=== PATIENT | female | born 1975 | race African-American/Black ===

== ENCOUNTER 2017-04-01 07:50 | Emergency (ER) | payer OTHER ==
[~2017-04-01] VITALS: Ht 165.1 cm; Wt 59.0 kg
[~2017-04-01 07:50] MED LIST: CIPR-213 PO; ONDA4TAB51 PO; TRAM50TA3 PO
[2017-04-01] MEDS ORDERED: SODIUM CHLORIDE 0.9% 1,000 ML IV ONE (08:56)
[2017-04-01] MEDS ORDERED: MORPHINE SULFATE 4 MG/ML CPJ (NOT FOR IM USE) IV STA (08:56)
[2017-04-01] MEDS ORDERED: FAMOTIDINE 20MG/2ML VIAL IV STA (08:56)
[2017-04-01] MEDS ORDERED: METOCLOPRAMIDE HCL 10MG TABLET PO STA (08:56)
[2017-04-01 09:26] LABS: BASOPHILS % 0.9 % (0.0-2.0); EOSINOPHILS % 0.7 % (0.0-5.0); HEMATOCRIT. 37.8 % (36.0-48.0); HEMOGLOBIN. 12.1 g/dL (12.0-16.0); LYMPHOCYTES % 17.4 % (20.0-50.0); MEAN CORPUSCULAR HEMOGLOBIN 27.9 pg (28.0-32.0); MEAN CORPUSCULAR VOLUME 87.2 fL (81.0-99.0); MEAN PLATELET VOLUME 8.3 fl (7.4-10.4); MONOCYTES % 6.9 % (2.0-8.0); NEUTROPHILS % 74.1 % (40.0-76.0); PLATELET 402 x1000/uL (130-400); RED BLOOD CELL COUNT 4.34 mill/uL (4.2-5.4); RED CELL DISTRIBUTION WIDTH 16.7 % (11.6-14.6)
[2017-04-01 09:27] VITALS: BP 141/78
[2017-04-01 09:40] LABS: CARBON DIOXIDE 27 mEq/L (21-32); CHLORIDE 102 mEq/L (98-107)
[2017-04-01] MEDS ORDERED: VISCOUS LIDOCAINE 2% 15 ML UDC MM PRN (11:30)
[2017-04-01] MEDS ORDERED: MAGNESIUM/ALUMINUM HYDROXIDE/SIMETHICONE 30ML UDC PO ONE (11:30)
[2017-04-01] MEDS: DICYCLOMINE HCL 20MG TABLET PO SCH ×3 (11:55→12:26)
== END 2017-04-01 12:27 | disposition home or self-care (01) ==
LOC: ER 07:57
DX: R11.2 Nausea with vomiting, unspecified (principal); R10.13 Epigastric pain; Z98.890 Other specified postprocedural states
CPT/HCPCS: 36415; 76705; 80053; 83690; 85025; 96361; 96374; 96375; 99285; J2270; J3490; J7030; Z7610; J8597

== ENCOUNTER 2017-08-02 22:41 | Emergency (ER) | payer SELFPAY ==
[2017-08-03] MEDS ORDERED: KETOROLAC 30MG/ML VIAL IV STA (03:11)
[2017-08-03] MEDS ORDERED: FAMOTIDINE 20MG/2ML VIAL IV STA (03:11)
[2017-08-03] MEDS ORDERED: ONDANSETRON HCL 4MG/2ML VIAL IV STA (03:11)
[2017-08-03 03:43] LABS: BASOPHILS % 0.6 % (0.0-2.0); EOSINOPHILS % 0.4 % (0.0-5.0); HEMATOCRIT. 35.8 % (36.0-48.0); HEMOGLOBIN. 11.7 g/dL (12.0-16.0); LYMPHOCYTES % 18.9 % (20.0-50.0); MEAN CORPUSCULAR HEMOGLOBIN 28.7 pg (28.0-32.0); MEAN CORPUSCULAR VOLUME 87.8 fL (81.0-99.0); MEAN PLATELET VOLUME 8.9 fl (7.4-10.4); MONOCYTES % 9.9 % (2.0-8.0); NEUTROPHILS % 70.2 % (40.0-76.0); PLATELET 403 x1000/uL (130-400); RED BLOOD CELL COUNT 4.08 mill/uL (4.2-5.4)
[2017-08-03 03:53] LABS: PROTHROMBIN TIME 10.8 sec (9.4-11.6)
[2017-08-03 03:54] LABS: CARBON DIOXIDE 28 mEq/L (21-32); CHLORIDE 104 mEq/L (98-107)
[2017-08-03] MEDS ORDERED: MAGNESIUM/ALUMINUM HYDROXIDE/SIMETHICONE 30ML UDC PO ONE (06:45)
[2017-08-03 07:32] LABS: KETONES URINE NEGATIVE (NEGATIVE); LEUKOCYTE ESTERASE URINE NEGATIVE (NEGATIVE); NITRITE URINE NEGATIVE (NEGATIVE); OCCULT BLOOD URINE TRACE (NEGATIVE); PROTEIN URINE 1+ (NEGATIVE); SPECIFIC GRAVITY URINE 1.031 (1.005-1.030); UROBILINOGEN URINE 0.2 E.U./dL (0.2-1.0)
[2017-08-03 07:36] LABS: CLARITY URINE CLOUDY (CLEAR); COLOR URINE YELLOW (YELLOW)
[2017-08-03] MEDS ORDERED: ONDANSETRON HCL 4MG/2ML VIAL IV ONE (08:15)
[2017-08-03 08:31] VITALS: BP 160/92
== END 2017-08-03 08:50 | disposition home or self-care (01) ==
LOC: ER 22:41
DX: R10.13 Epigastric pain (principal); E86.0 Dehydration
CPT/HCPCS: 36415; 80053; 81001; 81025; 83690; 85025; 85610; 96374; 96375; 96376; 99284; J1885; J2405; J3490; J7030; Z7610

== ENCOUNTER 2017-09-08 06:12 | Emergency (ER) | payer SELFPAY ==
[~2017-09-08] VITALS: Ht 165.1 cm; Wt 63.0 kg
[2017-09-08] MEDS ORDERED: SODIUM CHLORIDE 0.9% 1,000 ML IV ONE (07:15)
[2017-09-08] MEDS ORDERED: PANTOPRAZOLE SODIUM 40 MG/VIAL IV STA (07:15)
[2017-09-08] MEDS ORDERED: ONDANSETRON HCL 4MG/2ML VIAL IV STA (07:15)
[2017-09-08 07:37] LABS: BASOPHILS % 0.4 % (0.0-2.0); EOSINOPHILS % 0.2 % (0.0-5.0); LYMPHOCYTES % 15.5 % (20.0-50.0); MEAN CORPUSCULAR HEMOGLOBIN 27.3 pg (28.0-32.0); MEAN CORPUSCULAR VOLUME 86.8 fL (81.0-99.0); MEAN PLATELET VOLUME 7.6 fl (7.4-10.4); MONOCYTES % 6.1 % (2.0-8.0); NEUTROPHILS % 77.8 % (40.0-76.0); PLATELET 436 x1000/uL (130-400); RED BLOOD CELL COUNT 4.03 mill/uL (4.2-5.4); RED CELL DISTRIBUTION WIDTH 18.1 % (11.6-14.6)
[2017-09-08 07:42] LABS: CHLORIDE 105 mEq/L (98-107)
[2017-09-08 07:51] LABS: ETHANOL BLOOD < 10 mg/dL
[2017-09-08 08:03] LABS: CARBON DIOXIDE 29 mEq/L (21-32)
[2017-09-08] MEDS ORDERED: VISCOUS LIDOCAINE 2% 15 ML UDC MM STA (08:22)
[2017-09-08] MEDS ORDERED: MAGNESIUM/ALUMINUM HYDROXIDE/SIMETHICONE 30ML UDC PO ONE (08:30)
[2017-09-08] MEDS ORDERED: DICYCLOMINE HCL 10MG/ML 2ML AMP IM ONE (09:45)
[2017-09-08 10:22] LABS: CLARITY URINE CLEAR (CLEAR); COLOR URINE YELLOW (YELLOW); KETONES URINE TRACE (NEGATIVE); LEUKOCYTE ESTERASE URINE NEGATIVE (NEGATIVE); NITRITE URINE NEGATIVE (NEGATIVE); OCCULT BLOOD URINE 1+ (NEGATIVE); PROTEIN URINE 1+ (NEGATIVE); SPECIFIC GRAVITY URINE 1.034 (1.005-1.030); UROBILINOGEN URINE 0.2 E.U./dL (0.2-1.0)
[2017-09-08 10:56] LABS: *AMPHETAMINES SCREEN URINE NEGATIVE (NEGATIVE); *BARBITURATES SCREEN URINE NEGATIVE (NEGATIVE); *BENZODIAZEPINES SCREEN URINE NEGATIVE (NEGATIVE); *COCAINE SCREEN URINE NEGATIVE (NEGATIVE); METHADONE URINE SCREEN NEGATIVE (NEGATIVE); OPIATES URINE SCREEN NEGATIVE (NEGATIVE); PHENCYCLIDINE URINE SCREEN NEGATIVE (NEGATIVE)
[2017-09-08 11:04] LABS: CANNABINOID URINE SCREEN PRESUMTIVE POSITIVE (NEGATIVE)
[2017-09-08 11:31] VITALS: BP 120/72
== END 2017-09-08 11:44 | disposition home or self-care (01) ==
LOC: ER 06:12
DX: R10.9 Unspecified abdominal pain (principal); R11.2 Nausea with vomiting, unspecified
CPT/HCPCS: 36415; 80053; 80305; 81001; 83690; 85025; 96361; 96372; 96374; 96375; 99285; C9113; G0482; J0500; J2405; J7030

== ENCOUNTER 2018-01-17 01:26 | Emergency (ER) | payer SELFPAY ==
[~2018-01-17] VITALS: Ht 170.2 cm; Wt 64.0 kg
[2018-01-17] MEDS ORDERED: ONDANSETRON HCL 4MG/2ML VIAL IV STA (02:46)
[2018-01-17] MEDS ORDERED: MORPHINE SULFATE 4 MG/ML CPJ (NOT FOR IM USE) IV STA (02:46)
[2018-01-17] MEDS ORDERED: FAMOTIDINE 20MG/2ML VIAL IV STA (02:46)
[2018-01-17] MEDS ORDERED: SODIUM CHLORIDE 0.9% 1,000 ML IV ONE (02:46)
[2018-01-17 03:49] LABS: BASOPHILS % 0.5 % (0.0-2.0); EOSINOPHILS % 0.4 % (0.0-5.0); HEMATOCRIT. 33.2 % (36.0-48.0); HEMOGLOBIN. 10.5 g/dL (12.0-16.0); LYMPHOCYTES % 22.6 % (20.0-50.0); MEAN CORPUSCULAR HEMOGLOBIN 26.4 pg (28.0-32.0); MEAN CORPUSCULAR VOLUME 83.5 fL (81.0-99.0); MEAN PLATELET VOLUME 7.5 fl (7.4-10.4); MONOCYTES % 10.4 % (2.0-8.0); NEUTROPHILS % 66.1 % (40.0-76.0); PLATELET 386 x1000/uL (130-400); RED BLOOD CELL COUNT 3.98 mill/uL (4.2-5.4); RED CELL DISTRIBUTION WIDTH 17.9 % (11.6-14.6)
[2018-01-17 03:54] LABS: CHLORIDE 109 mEq/L (98-107)
[2018-01-17 03:58] LABS: PROTHROMBIN TIME 10.8 sec (9.4-11.6)
[2018-01-17 04:07] LABS: HCG SCREEN NEGATIVE
[2018-01-17] MEDS ORDERED: SODIUM CHLORIDE 0.9% 1000ML BAG (SEPSIS BOLUS) IV ONE (04:30)
[2018-01-17] MEDS ORDERED: MORPHINE SULFATE 4 MG/ML CPJ (NOT FOR IM USE) IV ONE (05:45)
[2018-01-17 06:02] VITALS: BP 175/80
[2018-01-17] MEDS ORDERED: SODIUM CHLORIDE 0.9% 920 ML IV SCH (06:45)
== END 2018-01-17 08:02 | disposition home or self-care (01) ==
LOC: ER 07:49
DX: K29.70 Gastritis, unspecified, without bleeding (principal); E86.0 Dehydration; D64.9 Anemia, unspecified; K52.9 Noninfective gastroenteritis and colitis, unspecified; Z98.890 Other specified postprocedural states
CPT/HCPCS: 36415; 80053; 83605; 83690; 84703; 85025; 85610; 87040; 96361; 96374; 96375; 96376; 99285; J2270; J2405; J3490; J7030; Z7610

== ENCOUNTER 2018-06-01 05:59 | Inpatient (IN) | payer SELFPAY ==
[~2018-06-01] VITALS: Ht 165.1 cm; Wt 63.5 kg
[2018-06-01] MEDS ORDERED: ONDANSETRON HCL 4MG/2ML INJ IV STA ×2 (07:11→10:06)
[2018-06-01] MEDS ORDERED: SODIUM CHLORIDE 0.9% 1,000 ML IV ONE ×2 (07:11→10:06)
[2018-06-01] MEDS ORDERED: MAGNESIUM/ALUMINUM HYDROXIDE/SIMETHICONE 30ML UDC PO ONE (07:15)
[2018-06-01] MEDS ORDERED: VISCOUS LIDOCAINE 2% 15 ML UDC PO STA (07:15)
[2018-06-01] MEDS ORDERED: DICYCLOMINE HCL 10MG/ML 2ML AMP IM ONE (07:30)
[2018-06-01 07:46] LABS: HEMATOCRIT. 34.8 % (36.0-48.0); MEAN CORPUSCULAR VOLUME 88.4 fL (81.0-99.0); MEAN PLATELET VOLUME 7.7 fl (7.4-10.4); PLATELET 399 x1000/uL (130-400); RED BLOOD CELL COUNT 3.94 mill/uL (4.2-5.4); RED CELL DISTRIBUTION WIDTH 19.2 % (11.6-14.6)
[2018-06-01 07:50] LABS: PROTHROMBIN TIME 10.2 sec (9.1-11.1)
[2018-06-01 07:53] LABS: CHLORIDE 106 mEq/L (98-107)
[2018-06-01 07:59] LABS: HCG SCREEN NEGATIVE
[2018-06-01 08:22] LABS: PLATELET ESTIMATE NORMAL
[2018-06-01 08:51] LABS: CLARITY URINE CLEAR (CLEAR); COLOR URINE YELLOW (YELLOW); KETONES URINE NEGATIVE (NEGATIVE); LEUKOCYTE ESTERASE URINE NEGATIVE (NEGATIVE); NITRITE URINE NEGATIVE (NEGATIVE); OCCULT BLOOD URINE NEGATIVE (NEGATIVE); PH URINE 5.5 (4.5-8.0); PROTEIN URINE TRACE (NEGATIVE); SPECIFIC GRAVITY URINE 1.022 (1.005-1.030); UROBILINOGEN URINE 0.2 E.U./dL (0.2-1.0)
[2018-06-01] MEDS ORDERED: MORPHINE SULFATE 4 MG/ML CPJ (NOT FOR IM USE) IV STA (10:06)
[2018-06-01 17:58] VITALS: BP 160/75
[2018-06-01] MEDS: MORPHINE SULFATE 4 MG/ML CPJ (NOT FOR IM USE) IV PRN ×2 (18:13→23:03)
[2018-06-01] MEDS: DEXT 5%/0.9% NACL 1,000 ML IV SCH (18:40)
[2018-06-01] MEDS ORDERED: LORAZEPAM 2MG/ML CPJ IV PRN (19:45)
[2018-06-01 20:00] VITALS: BP 166/97
[2018-06-01] MEDS ORDERED: ENOXAPARIN 40MG/0.4ML SYR SUBCUT SCH (22:00)
[2018-06-02] VITALS: BP 92/46
[2018-06-02] MEDS: DEXT 5%/0.9% NACL 1,000 ML IV SCH (03:49)
[2018-06-02 04:00] VITALS: BP 95/57
[2018-06-02 07:34] LABS: BASOPHILS % 0.3 % (0.0-2.0); EOSINOPHILS % 0.5 % (0.0-5.0); HEMATOCRIT. 31.7 % (36.0-48.0); HEMOGLOBIN. 10.3 g/dL (12.0-16.0); LYMPHOCYTES % 20.2 % (20.0-50.0); MEAN CORPUSCULAR HEMOGLOBIN 28.6 pg (28.0-32.0); MEAN CORPUSCULAR VOLUME 88.2 fL (81.0-99.0); MEAN PLATELET VOLUME 8.1 fl (7.4-10.4); PLATELET 333 x1000/uL (130-400); RED CELL DISTRIBUTION WIDTH 18.9 % (11.6-14.6)
[2018-06-02 08:00] VITALS: BP 93/57
[2018-06-02 09:55] VITALS: BP 93/57
[2018-06-02 10:43] LABS: CHLORIDE 107 mEq/L (98-107)
[2018-06-02 10:55] LABS: ETHANOL BLOOD < 10 mg/dL
== END 2018-06-02 10:30 | disposition home or self-care (01) | DRG 249 ==
LOC: ER 05:59 → 6EST 11:52 → ENRESERV 15:25 → CANBEDREQ 16:11
PROVIDERS: ADMIT Internal Medicine Nephrology; ATTEND Internal Medicine Nephrology
DX: K52.9 Noninfective gastroenteritis and colitis, unspecified (principal); D63.8 Anemia in other chronic diseases classified elsewhere; K21.9 Gastro-esophageal reflux disease without esophagitis; Z98.891 History of uterine scar from previous surgery; Z79.899 Other long term (current) drug therapy
CPT/HCPCS: 36415; 74176; 80048; 81025; 84703; 96361; 96374; 96375; 99285; G0482; J0500; J1650; J2060; J2270; J2405; J7030; J7042